=== PATIENT | female | born 1995 | race Caucasian/White ===

== ENCOUNTER 2018-07-30 18:23 | Emergency (ER) | payer MEDICAID ==
[2018-07-30] MEDS: LIDOCAINE 1% (MPF) 5 ML VIAL INFIL (21:21)
== END 2018-07-30 23:29 | disposition home or self-care (01) ==
LOC: FTE 18:23
DX: L02.211 Cutaneous abscess of abdominal wall (principal)
CPT/HCPCS: 10060; 99283-25

== ENCOUNTER 2018-08-02 11:30 | Emergency (ER) | payer MEDICAID ==
[2018-08-02] MEDS: LIDOCAINE 1% (MPF) 5 ML VIAL INJ (12:16)
[2018-08-02] MEDS: CEFTRIAXONE 1 GM INJ IM (12:16)
== END 2018-08-02 12:35 | disposition home or self-care (01) ==
LOC: FTE 11:30
DX: L53.9 Erythematous condition, unspecified (principal)
CPT/HCPCS: 96372; 99284-25

== ENCOUNTER 2018-08-04 12:02 | Emergency (ER) | payer MEDICAID | END 2018-08-04 15:23 | disposition home or self-care (01) | LOC: FTE 12:02 | DX: Z48.01 Encounter for change or removal of surgical wound dressing (principal) | CPT/HCPCS: 99281; Z7502 ==